=== PATIENT | male | born 1985 | race Caucasian/White ===

== ENCOUNTER 2016-08-08 09:07 | Day surgery (SDC) | payer OTHER ==
[~2016-08-08] VITALS: Ht 193 cm; Wt 87.3 kg
[~2016-08-08 09:07] MED LIST: ACET-784 PO; DULO60CA44 PO
[2016-08-08] MEDS ORDERED: SODIUM CHLORIDE 0.9% 1,000 ML IV ONE (09:30)
[2016-08-08] MEDS ORDERED: LIDOCAINE HCL/PF 1% 30 ML VIAL ONE (12:13)
[2016-08-08] MEDS ORDERED: IOHEXOL 300 MG/ML 10 ML VIAL ONE (12:13)
[2016-08-08 12:16] VITALS: BP 132/79
[2016-08-08 12:18] VITALS: BP 132/79
[2016-08-08] MEDS ORDERED: MIDAZOLAM HCL 2 MG/2 ML VIAL ONE (12:21)
[2016-08-08] MEDS ORDERED: FentaNYL CITRATE-PF 100 MCG/2 ML VIAL ONE (12:21)
[2016-08-08 12:27] VITALS: BP 145/79
[2016-08-08] MEDS ORDERED: IOHEXOL 300 MG/ML 10 ML VIAL IARTIC ONE (12:30)
[2016-08-08] MEDS ORDERED: LIDOCAINE HCL/PF 1% 30 ML VIAL INJ ONE (12:30)
[2016-08-08] MEDS ORDERED: FentaNYL CITRATE-PF 100 MCG/2 ML VIAL IVP ONE (12:45)
== END 2016-08-08 13:30 | disposition home or self-care (01) ==
LOC: SDS 09:07
PROVIDERS: ATTEND Physical Medicine & Rehabilitation Pain Medicine
DX: M54.16 Radiculopathy, lumbar region (principal)
CPT/HCPCS: 64483; J1040; J3010; J3490; Q9967; J2250